=== PATIENT | female | born 1950 | race Caucasian/White ===

== ENCOUNTER → 2016-09-23 | Outpatient (CLI) | payer BC ==
[2016-09-23 11:12] LABS: Basophils % (A) 1 %; CH 30.3; CHCM 32.1; Eosinophils # (A) 0.1 k/uL (0-0.7); Eosinophils % (A) 2 %; HCT 43.6 % (34.0-46.0); HDW 2.13; HGB 14.1 gm/dL (11.4-16.0); Luc # (Auto) 0.17; Luc % (Auto) 3; Lymphocytes # (A) 1.7 k/uL (1.0-4.8); Lymphocytes % (A) 33 %; MCH 30.5 pg (25.0-35.0); MCHC 32.2 g/dL (31.0-37.0); MCV 94.6 fL (80.0-100.0); Mean Platelet Volume 7.3; Monocytes # (A) 0.3 k/uL (0-1.0); Monocytes % (A) 5 %; Neutrophils # (A) 2.8 k/uL (1.3-7.7); Neutrophils % (A) 56 %; RBC 4.61 m/uL (3.80-5.40); RDW 13.2 % (11.5-15.5); WBC 5.1 k/uL (3.8-10.6); WBC (Perox) 5.46
[2016-09-23 11:26] LABS: ALT 31 U/L (9-52); AST 21 U/L (14-36); Alkaline Phosphatase 65 U/L (38-126); Anion Gap 9 mmol/L; Blood Urea Nitrogen 15 mg/dL (7-17); Calcium 9.6 mg/dL (8.4-10.2); Carbon Dioxide 26 mmol/L (22-30); Chloride 105 mmol/L (98-107); Cholesterol 220 mg/dL (<200); Glucose 95 mg/dL (74-99); Non-African American GFR(MDRD) >60 (>60 ml/min/1.73 sqM); Potassium 4.6 mmol/L (3.5-5.1); Sodium 140 mmol/L (137-145); Total Bilirubin 0.6 mg/dL (0.2-1.3); Total Protein 7.3 g/dL (6.3-8.2); Triglycerides 63 mg/dL (<150)
[2016-09-23 12:22] LABS: HDL Cholesterol 125 mg/dL (40-60)
== END | disposition home or self-care (01) ==
LOC: LABWHC1 10:04
PROVIDERS: ATTEND Family Medicine
DX: Z00.00 Encounter for general adult medical examination without abnormal findings (principal)
CPT/HCPCS: 36415; 80053; 80061; 85025

== ENCOUNTER → 2018-04-03 | Outpatient (CLI) | payer MEDICARE ==
--- NOTE | 2018-04-03 13:22 | BD ---
EXAMINATION TYPE: Axial Bone Density DATE OF EXAM: 04/03/2018 COMPARISON: 07/13/2015 CLINICAL HISTORY: Height: 55.7 IN Weight: 118 LBS FRAX RISK QUESTIONS: Secondary Osteoporosis: 3. Menopause before 45: YES AGE 45 RISK FACTORS HISTORY OF: Family History of Osteoporosis: YES MOTHER,SELF Active: YES Diet low in dairy products/other sources of calcium: YES Postmenopausal woman: AGE 45 Take estrogen and/or progesterone medications: NOT NOW How long: AGE 43 -50 MEDICATIONS: Additional Medications: CALCIUM, VIT D, EXAM MEASUREMENTS: Bone mineral densitometry was performed using the [employer]. Bone mineral density as measured about the Lumbar spine is: ----- L1-L4(G/cm2): 0.964 T Score Values are as follows: ----- L2: -2.0 ----- L3: -1.8 ----- L4: -1.9 ----- L1-L4: -1.8 Bone mineral density has: Decreased -5.5% since study of: 07/13/2015 Bone mineral density about the R hip (g/cm2): 0.742 Bone mineral density about the L hip (g/cm2): 0.749 T Score values are as follows: -----R Neck: -2.1 -----L Neck: -2.1 -----R Total: -2.2 -----L Total: -2.3 Bone mineral density has: Decreased -3.6% since study of: 07/13/2015 IMPRESSION: Osteopenia NOTE: T-SCORE=SD OF THE YOUNG ADULT MEAN.
--- NOTE | 2018-04-10 10:30 | MM ---
Reason for exam: screening (asymptomatic). Last mammogram was performed 2 years and 9 months ago. History: Patient is postmenopausal and had first child at age 33. Took estrogen for 6 months. Took progesterone for 6 months. Physical Findings: A clinical breast exam by your physician is recommended on an annual basis and results should be correlated with mammographic findings. MG Screening Mammo w CAD Bilateral CC and MLO view(s) were taken. Prior study comparison: July 13, 2015, bilateral MG screening mammo w CAD. July 09, 2012, bilateral digital screening mammo w/CAD. The breast tissue is heterogeneously dense. This may lower the sensitivity of mammography. Finding: There are typically benign vascular, dystrophic, round calcifications in both breasts. There is no discrete abnormality. ASSESSMENT: Benign, BI-RAD 2 RECOMMENDATION: Routine screening mammogram of both breasts in 1 year.
== END | disposition home or self-care (01) ==
LOC: RADMAMWWP 11:31
PROVIDERS: ATTEND Obstetrics & Gynecology
DX: Z12.31 Encounter for screening mammogram for malignant neoplasm of breast (principal); M85.80 Other specified disorders of bone density and structure, unspecified site
CPT/HCPCS: 77067; 77080

== ENCOUNTER → 2021-03-04 | Outpatient (CLI) | payer MEDICARE ==
--- NOTE | 2021-03-04 09:48 | BD ---
EXAMINATION TYPE: Axial Bone Density DATE OF EXAM: 03/04/2021 COMPARISON: 04.03.2018 CLINICAL HISTORY: 70 YR OLD FEMALE.....ICD-10 CODE: M85.88 MENOPAUSAL Height: 65.5 Weight: 119 FRAX RISK QUESTIONS: Secondary Osteoporosis: YES 3. Menopause before 45: YES RISK FACTORS HISTORY OF: Family History of Osteoporosis: YES, HER MOTHER...NO FX Postmenopausal woman: YES, AT AGE 40 YRS OLD, NATURALLY Take estrogen and/or progesterone medications: YES IN THE PAST FOR ABOUT 10 + YRS Hyperparathyroidism: NO Adrenal Insufficiency: NO MEDICATIONS: Additional Medications: VIT D AND CALCIUM ONLY Additional History: NOTHING ADDITIONAL TO ADD HERE EXAM MEASUREMENTS: Bone mineral densitometry was performed using the [employer]. Bone mineral density as measured about the Lumbar spine is: ----- L1-L4(G/cm2): 0.940 T Score Values are as follows: ----- L1: -1.7 ----- L2: -2.3 ----- L3: -2.0 ----- L4: -2.1 ----- L1-L4: -2.0 Bone mineral density has: Decreased -3.0% since study of: 04.03.2018 Bone mineral density about the R hip (g/cm2): 0.695 Bone mineral density about the L hip (g/cm2): 0.708 T Score values are as follows: -----R Neck: -2.3 -----L Neck: -2.4 -----R Total: -2.5 -----L Total: -2.4 Bone mineral density has: Decreased -3.0% since study of: 04.03.2018 FRAX%s: THERE IS A 12.1 % CHANCE FOR A MAJOR OSTEOPOROTIC FX AND A 3.0% FOR HIP......PROBABILITY F OR FX IN 10 YRS TIME IMPRESSION: Osteoporosis. NOTE: T-SCORE=SD OF THE YOUNG ADULT MEAN.
--- NOTE | 2021-03-05 12:28 | MM ---
Reason for exam: screening (asymptomatic). Last mammogram was performed 2 years and 11 months ago. History: Patient is postmenopausal and had first child at age 33. Took hormonal contraceptives for 10 years. Took estrogen for 6 months. Took progesterone for 6 months. Physical Findings: A clinical breast exam by your physician is recommended on an annual basis and results should be correlated with mammographic findings. MG Screening Mammo w CAD Bilateral CC and MLO view(s) were taken. Prior study comparison: April 03, 2018, bilateral MG screening mammo w CAD. The breast tissue is heterogeneously dense. This may lower the sensitivity of mammography. ASSESSMENT: Negative, BI-RAD 1 RECOMMENDATION: Routine screening mammogram of both breasts in 1 year.
== END | disposition home or self-care (01) ==
LOC: RADMAMWWP 08:23
PROVIDERS: ATTEND Obstetrics & Gynecology
DX: Z12.31 Encounter for screening mammogram for malignant neoplasm of breast (principal); Z78.0 Asymptomatic menopausal state; M81.8 Other osteoporosis without current pathological fracture
CPT/HCPCS: 77067; 77080

== ENCOUNTER → 2023-05-11 | Outpatient (CLI) | payer MEDICARE ==
--- NOTE | 2023-05-12 08:58 | MM ---
Reason for Exam: Screening (asymptomatic). Last mammogram was performed 2 year(s) and 2 month(s) ago. Patient History: Menarche at age 14. First Full-Term at age 33. Late child-bearing (after 32). Postmenopausal. Patient has history of breast feeding. Estrogen for 6 months. Progesterone for 6 months. Patient used Hormonal Contraceptives for 10 years. Risk Values: Tracie 5 year model risk: 2.4%. NCI Lifetime model risk: 6.9%. Prior Study Comparison: 07/13/2015 Bilateral Screening Mammogram, [facility]. 04/03/2018 Bilateral Screening Mammogram, [facility]. 03/04/2021 Bilateral Screening Mammogram, [facility]. Tissue Density: The breast tissue is heterogeneously dense. This may lower the sensitivity of mammography. Findings: Analyzed By CAD. There is no suspicious group of microcalcifications or new suspicious mass in either breast. There are benign-appearing calcifications. Overall Assessment: Benign, BI-RAD 2 Management: Screening Mammogram of both breasts in 1 year. . Patient should continue monthly self-breast exams. A clinical breast exam by your physician is recommended on an annual basis. This exam should not preclude additional follow-up of suspicious palpable abnormalities. Note on Tracie scores and lifetime risk: 1. A Tracie score greater than 3% is considered moderate risk. If this is the case, consider specialist referral to assess eligibility for a risk reducing agent. 2. If overall lifetime risk for the development of breast cancer is 20% or higher, the patient may qualify for future screening with alternating mammogram and breast MRI. Electronically signed and approved by: Jose Cramer M.D. Radiologis
--- NOTE | 2023-05-12 11:13 | BD ---
EXAMINATION TYPE: Axial Bone Density DATE OF EXAM: 05/11/2023 CLINICAL HISTORY: 72 years old Female. ICD-10 CODE: M810 KNOWN OSTEO Height: 65 in Weight: 103 lbs FRAX RISK QUESTIONS: Secondary Osteoporosis: 3. Menopause before 45: age 54 RISK FACTORS HISTORY OF: Family History of Osteoporosis: yes mother Active: yes Postmenopausal woman: age 54 Take estrogen and/or progesterone medications: not now How lon years Lost more than 2 inches in height since high school: yes 3" MEDICATIONS: Additional Medications: calcium, vit d, centrum silver EXAM MEASUREMENTS: Bone mineral densitometry was performed using the [employer]. Bone mineral density as measured about the Lumbar spine is: ----- L1-L4(G/cm2): 0.904 T Score Values are as follows: ----- L1: -2.1 ----- L2: -2.3 ----- L3: -2.6 ----- L4: -2.4 ----- L1-L4: -2.3 Z Score Values are as follows: ----- L1: 0.2 ----- L2: 0.0 ----- L3: -0.3 ----- L4: -0.1 ----- L1-L4: 0.0 Bone mineral density has: Decreased -3.8% since study of: 03/04/2021 Bone mineral density about the R hip (g/cm2): 0.640 Bone mineral density about the L hip (g/cm2): 0.697 T Score values are as follows: -----R Neck: -2.6 -----L Neck: -2.3 -----R Total: -2.9 -----L Total: -2.5 Z Score values are as follows: -----R Neck: -0.5 -----L Neck: -0.2 -----R Total: -1.0 -----L Total: -0.5 Bone mineral density has: Decreased -4.7% since study of: 03/04/2021 FRAX%s: The graph provided illustrates a 12.8% chance for a major osteoporotic fx and a 3.9% chance f or the hips probability for fx in 10 years time. IMPRESSION: Osteoporosis (T Score less than -2.5). There is increased fracture risk and therapy is usually indicated based on age. Re-Screen 1-2 years. NOTE: T-SCORE=SD OF THE YOUNG ADULT MEAN.
== END | disposition home or self-care (01) ==
LOC: RADMAMWWP 14:03
PROVIDERS: ATTEND Obstetrics & Gynecology
DX: Z12.31 Encounter for screening mammogram for malignant neoplasm of breast (principal); M81.0 Age-related osteoporosis without current pathological fracture; M85.89 Other specified disorders of bone density and structure, multiple sites; Z78.0 Asymptomatic menopausal state
CPT/HCPCS: 77067; 77080